=== PATIENT | female | born 2000 | race Caucasian/White ===

== ENCOUNTER 2020-05-14 21:48 | Emergency (ER) | payer OTHER ==
[~2020-05-14] VITALS: Ht 139.7 cm; Wt 60.7 kg
== END 2020-05-15 01:10 | disposition left against medical advice (07) ==
LOC: ED 21:48
DX: Z53.21 Procedure and treatment not carried out due to patient leaving prior to being seen by health care provider (principal)
CPT/HCPCS: 81001

== ENCOUNTER 2024-02-17 11:43 | Emergency (ER) | payer OTHER ==
[~2024-02-17] VITALS: Ht 139.7 cm; Wt 62.9 kg
[2024-02-17 12:09] VITALS: BP 108/74
== END 2024-02-17 12:10 | disposition home or self-care (01) ==
LOC: ED 11:43
DX: Z48.01 Encounter for change or removal of surgical wound dressing (principal); Z79.01 Long term (current) use of anticoagulants; Z98.890 Other specified postprocedural states
CPT/HCPCS: 99283

== ENCOUNTER 2024-08-25 13:33 | Emergency (ER) | payer OTHER ==
[~2024-08-25] VITALS: Ht 139.7 cm; Wt 65.2 kg
[~2024-08-25 13:33] MED LIST: ENTRESTO 24 MG1 EACH PO; GABAPENTIN300 MG PO; JARDIANCE10 MG PO; LARIN1 EACH PO; LO-DOSE ASPIRIN81 MG PO; METOPROLOL SUCC25 MG PO; METOPROLOL SUCC50 MG PO; WARFARIN SODIUM5 MG PO
[2024-08-25 15:42] VITALS: BP 109/78
--- NOTE | 2024-08-26 21:10 | EKG ---
[facility] [address] [facility] [address] [place] [address] Signed Atrial-sensed ventricular-paced rhythm Abnormal ECG No previous ECGs available Confirmed by Jl Palacio MD ([id number]) on 08/26/2024 9:10:28 PM Electronically Signed By: JL PALACIO MD [id number] PATIENT NAME: JUDY JARRETT VERA Electrocardiogram DATE OF : [birth year] PHYSICIAN: JL PALACIO MD REPORT #: [id number] REPORT IS CONFIDENTIAL AND NOT TO BE RELEASED WITHOUT AUTHORIZATION
== END 2024-08-25 15:42 | disposition home or self-care (01) ==
LOC: ED 13:33
DX: M25.511 Pain in right shoulder (principal); Z95.0 Presence of cardiac pacemaker; Z79.01 Long term (current) use of anticoagulants; Z79.82 Long term (current) use of aspirin; Z79.899 Other long term (current) drug therapy
CPT/HCPCS: 71045; 93005; 93010; 99283-25